=== PATIENT | male | born 1945 | race Caucasian/White ===

== ENCOUNTER 2021-03-03 09:51 | Outpatient (CLI) | payer MEDICARE | END 2021-03-03 09:52 | disposition home or self-care (01) | LOC: CSHMRI 09:51 | PROVIDERS: ATTEND Radiology Radiation Oncology | DX: C61 Malignant neoplasm of prostate (principal); M25.512 Pain in left shoulder; M75.122 Complete rotator cuff tear or rupture of left shoulder, not specified as traumatic; R93.7 Abnormal findings on diagnostic imaging of other parts of musculoskeletal system ==